=== PATIENT | male | born 1975 | race Caucasian/White ===

== ENCOUNTER 2021-06-15 14:38 | Emergency (ER) | payer BC, OTHER ==
[~2021-06-15] VITALS: Ht 188 cm; Wt 122.5 kg
--- NOTE | 2021-06-15 14:52 | NUR ---
BIBS FOR C/O WORSENING LEFT LEG SWELLING AND PAIN 10 X 2 WEEKS,H/O DVT AND PE. RESPIRATION REGULAR AND UNLABORED. WILL CONTINUE TO MONITOR THE PATIENT.
--- NOTE | 2021-06-15 15:16 | NUR ---
US TECH AT THE BEDSIDE
--- NOTE | 2021-06-15 16:04 | NUR ---
Patient discharged to home in stable condition. Written and verbal after care instructions given. Patient verbalizes understanding of instruction.
[2021-06-15 16:06] VITALS: BP 84/148
== END 2021-06-15 16:06 | disposition home or self-care (01) ==
LOC: ER 14:56
DX: M79.662 Pain in left lower leg (principal); R22.42 Localized swelling, mass and lump, left lower limb; I10 Essential (primary) hypertension; Z86.711 Personal history of pulmonary embolism; Z86.718 Personal history of other venous thrombosis and embolism; Z60.2 Problems related to living alone; Z88.2 Allergy status to sulfonamides
CPT/HCPCS: 93971-TC

== ENCOUNTER 2021-07-09 16:22 | Inpatient (IN) | payer BC ==
[~2021-07-09] VITALS: Ht 188 cm; Wt 127.0 kg
--- NOTE | 2021-07-09 16:22 | NUR ---
BIBSELF C/O BLE PAIN REDNESS AND SWELLING STARTED THIS MORNING, HAD MENISCUS SURGERY 07/05/21. PT IS A&OX4. VITAL SIGNS ARE WITHIN NORMAL LIMITS. BREATHING IS REGULAR AND UNLABORED. PT SENT TO BED 4 AND ATTCHED TO MONITOR.
--- NOTE | 2021-07-09 16:37 | NUR ---
IV ESTABLISHED L HAND #20G. LABS WERE DRAWN AND SENT. PT UNABLE TO PROVIDE URINE SAMPLE AT THIS TIME.
[2021-07-09] MEDS ORDERED: MORPHINE SULFATE INJ 2 MG/ML DISP.SYRIN IV ONE (17:00)
[2021-07-09] MEDS ORDERED: ONDANSETRON HCL/PF 4 MG/2 ML VIAL IVP ONE (17:00)
[2021-07-09] MEDS ORDERED: PIPERACILLIN /TAZOBACTAM 3.375 G in IV D5W 50 ML IV ONE (17:00)
[2021-07-09] MEDS ORDERED: VANCOMYCIN 1 GM in IV D5W 250 ML IV ONE (17:00)
[2021-07-09] MEDS ORDERED: ACETAMINOPHEN ES 500 MG TABLET PO ONE (17:00)
--- NOTE | 2021-07-09 17:03 | NUR ---
[phone] [phone] AIRCRAFT PARTS ASSEMBLER IS TONYCHRISTIANO WILL BE PAGED.
[2021-07-09] MEDS ORDERED: MORPHINE SULFATE INJ 4 MG/ML DISP.SYRIN ONE (17:19)
[2021-07-09] MEDS ORDERED: ONDANSETRON HCL/PF 4 MG/2 ML VIAL ONE (17:19)
[2021-07-09] MEDS ORDERED: ACETAMINOPHEN ES 500 MG TABLET ONE (17:19)
--- NOTE | 2021-07-09 17:28 | NUR ---
DR. KATHLEEN SPEAKING WITH DR. CHAMBERS.
[2021-07-09 17:34] LABS: BASOPHILS # (AUTO) 0.1 K/uL (0.0-0.2); BASOPHILS % (AUTO) 0.8 % (0.0-2.0); EOSINOPHILS % (AUTO) 2.2 % (0.0-6.0); HEMATOCRIT 44 % (39-51); HEMOGLOBIN 14.4 g/dL (13.5-17.5); LYMPHOCYTES # (AUTO) 1.2 K/uL (0.8-4.8); LYMPHOCYTES % (AUTO) 9.8 % (20.0-44.0); MEAN CORPUSCULAR HGB CONC 33 g/dl (31.0-36.0); MEAN CORPUSCULAR VOLUME 91 fL (80-96); MONOCYTES % (AUTO) 8.4 % (2.0-12.0); NEUTROPHILS # (AUTO) 9.6 K/uL (1.8-8.9); NEUTROPHILS % (AUTO) 78.8 % (43.0-81.0); PLATELET COUNT (AUTO) 200 K/uL (150-450); RED BLOOD CELL COUNT(AUTO) 4.76 MIL/uL (4.5-6.0); WHITE BLOOD COUNT (AUTO) 12.2 K/uL (4.3-11.0)
[2021-07-09 17:46] LABS: CALCIUM, SERUM 8.5 mg/dL (8.5-10.1); CARBON DIOXIDE 28 mmol/L (21-32); CHLORIDE 98 mmol/L (98-107); CREATININE 1.3 mg/dL (0.6-1.3); GLUCOSE 98 mg/dL (74-106); SODIUM SERUM 132 mmol/L (136-145); UREA NITROGEN, BLOOD 25 mg/dL (7-18)
[2021-07-09 17:59] LABS: ALANINE AMINOTRANSFERASE 47 U/L (12-78); ALBUMIN 3.7 g/dL (3.4-5.0); ALKALINE PHOSPHATASE 73 U/L (46-116); ASPARTATE AMINOTRANSFERASE 33 U/L (15-37); BILIRUBIN,DIRECT 0.3 mg/dL (0.0-0.2); BILIRUBIN,TOTAL 1.6 mg/dL (0.2-1.0); TOTAL PROTEIN, SERUM 7.3 g/dL (6.4-8.2)
--- NOTE | 2021-07-09 18:00 | NUR ---
LACT ACID 3.2. DR CHAMBERS NOTIFIED.
--- NOTE | 2021-07-09 18:05 | NUR ---
PT IS UNABLE TO PROVIDE URINE SAMPLE
[2021-07-09] MEDS ORDERED: IV NS 0.9% 1,000 ML IV ONE ×2 (18:30)
[2021-07-09] MEDS ORDERED: IV LR 1000 ML 1,000 ML IV ONE (18:30)
--- NOTE | 2021-07-09 18:30 | NUR ---
AN ADDITIONAL NORMAL SALINE 1,000ML GIVEN IV L HAND #[address] CHAMBERS'S ORDERS.
--- NOTE | 2021-07-09 18:45 | NUR ---
[facility] CALLED INTERNATIONAL STUDENT COUNSELOR PAGED.
--- NOTE | 2021-07-09 19:07 | NUR ---
URINE COLLECTED AND SENT
[2021-07-09] MEDS ORDERED: Z GUARD REMEDY 2 OZ OINT TP PRN (19:30)
[2021-07-09] MEDS ORDERED: ONDANSETRON HCL/PF 4 MG/2 ML VIAL IVP PRN (19:30)
[2021-07-09] MEDS ORDERED: MAG HYDROX/AL HYDROX/SIMETH 30 ML UDC PO PRN (19:30)
[2021-07-09] MEDS ORDERED: ACETAMINOPHEN 325 MG TABLET PO PRN (19:30)
[2021-07-09] MEDS ORDERED: MAGNESIUM HYDROXIDE 30 ML UDC PO PRN (19:30)
[2021-07-09 20:09] LABS: BILIRUBIN,URINE NEGATIVE (NEGATIVE); COLOR,URINE YELLOW (YELLOW); LEUKOCYTE ESTERASE ,URINE NEGATIVE (NEGATIVE); NITRITE, URINE NEGATIVE (NEGATIVE); PROTEIN,URINE NEGATIVE (NEGATIVE); UGLUCOSE NEGATIVE (NEGATIVE); UROBILINOGEN,URINE 0.2 EU/dL (0.2)
--- NOTE | 2021-07-09 22:16 | NUR ---
RECIEVED [id number]
--- NOTE | 2021-07-09 22:40 | NUR ---
REPORT GIVEN TO AIDEE
--- NOTE | 2021-07-09 22:56 | NUR ---
PT TRANSPORTED TO [facility] ON MACHINE OPERATOR HOP PICKER PER ACLS PROTOCOL WITHOUT INCIDENT
[2021-07-09 23:00] VITALS: BP_SYST 166; BP_DIAS 80; BP_DIAS 81
[2021-07-09] MEDS: MORPHINE SULFATE INJ 2 MG/ML DISP.SYRIN IV PRN (23:00)
--- NOTE | 2021-07-09 23:30 | NUR ---
Patient admitted to at 2300. A&Ox4. Only c/o is of pain (10/10 to BLE) which was reduced by PRN Morphine. Initial VS 166/80, HR 105, temp 98.3, O2 98% on RA, RR 21. Only skin issues are to BLE redness, swelling, warmth. and L knee surgical incision with intact sutures and no drainage -pictures in chart. Pupils equal and reactive to light. Lung sounds clear. Heart rhythm regular though rate is elevated. Bowel sounds active. Weakness to lower extremities from pain. Patient attached to tele monitor. Pt. oriented to staff, unit protocol, bed controls, call light. L hand #20G and R hand #20G flushed and patent. Will continue to monitor pt. closely.
[2021-07-09] MEDS ORDERED: PIPERACILLIN /TAZOBACTAM 3.375 G VIAL IV ONE (23:53)
[2021-07-09] MEDS: ZOSYN IVPB 3.375 G in IV D5W 50ml IV SCH (23:55)
[2021-07-10] VITALS: BP 141/88
[2021-07-10] MEDS: ZOLPIDEM TARTRATE 5 MG TABLET PO PRN (00:10)
[2021-07-10 02:00] VITALS: BP 141/88
[2021-07-10] MEDS: MORPHINE SULFATE INJ 2 MG/ML DISP.SYRIN IV PRN ×3 (03:20→20:12)
[2021-07-10 04:00] VITALS: BP 149/81
[2021-07-10] MEDS ORDERED: VANCOMYCIN 2 GM in IV D5W 500 ML IV ONE (05:00)
[2021-07-10] MEDS ORDERED: VANCOMYCIN 1 GM VIAL ONE ×2 (05:06→05:07)
[2021-07-10] MEDS ORDERED: PIPERACILLIN /TAZOBACTAM 3.375 G VIAL IV ONE (06:18)
[2021-07-10] MEDS: ZOSYN IVPB 3.375 G in IV D5W 50ml IV SCH (06:19)
--- NOTE | 2021-07-10 06:45 | NUR ---
Pt. tolerating IV ABX well. C/o pain x2 medicated with PRN morphine with relief. No resp or cardiac distress. VSS overnight.
--- NOTE | 2021-07-10 07:30 | NUR ---
SHADING PAINTER OPENING NOTES RECEIVED PATIENT ON BED, AWAKE AND A/O X4. ON ROOM AIR BREATHING EVENLY AND UNLABORED. NOT IN DISTRESS. WITH NO COMPLAINTS OF PAIN AT THIS TIME. WITH IV ACCESS AT LEFT HAND G20 AND RIGHT HAND G 20, SALINE LOCKED, PATENT AND INTACT. SAFETY MEASURES IN PLACE. CALL LIGHT WITHIN REACH. BED ON LOWEST LOCKED POSITION, SIDE RAILS UP X2. WILL CONTINUE TO MONITOR.
[2021-07-10 07:31] LABS: BASOPHILS # (AUTO) 0.1 K/uL (0.0-0.2); BASOPHILS % (AUTO) 0.7 % (0.0-2.0); HEMATOCRIT 39 % (39-51); HEMOGLOBIN 13.4 g/dL (13.5-17.5); MEAN CORPUSCULAR HGB CONC 34 g/dl (31.0-36.0); MEAN CORPUSCULAR VOLUME 90 fL (80-96); MONOCYTES # (AUTO) 1.1 K/uL (0.1-1.30); MONOCYTES % (AUTO) 9.7 % (2.0-12.0); NEUTROPHILS % (AUTO) 78.6 % (43.0-81.0); PLATELET COUNT (AUTO) 178 K/uL (150-450); RED BLOOD CELL COUNT(AUTO) 4.35 MIL/uL (4.5-6.0); WHITE BLOOD COUNT (AUTO) 11.5 K/uL (4.3-11.0)
[2021-07-10 07:35] LABS: CALCIUM, SERUM 8.3 mg/dL (8.5-10.1); CREATININE 1.1 mg/dL (0.6-1.3); PHOSPHORUS 1.9 mg/dL (2.5-4.9); POTASSIUM 3.7 mmol/L (3.5-5.1)
[2021-07-10 08:00] VITALS: BP 158/90
[2021-07-10] MEDS ORDERED: NEUTRA PHOS 1 POWD.PACKET PO ONE (08:30)
[2021-07-10] MEDS: PIPERACILLIN /TAZOBACTAM 3.375 G in IV D5W 100 ML IV SCH ×2 (09:17→17:35)
[2021-07-10 16:00] VITALS: BP 160/84
[2021-07-10] MEDS: VANCOMYCIN 1.5 GM in IV D5W 500 ML IV SCH (17:24)
--- NOTE | 2021-07-10 19:33 | NUR ---
MS RN CLOSING NOTES PATIENT ON BED, AWAKE AND A/O X4. ON ROOM AIR BREATHING EVENLY AND UNLABORED. NOT IN DISTRESS. WITH COMPLAINTS OF PAIN AT 7/10. COMFORT MEASURES PROVIDED. WITH IV ACCESS AT LEFT HAND G20 AND RIGHT HAND G 20, SALINE LOCKED, PATENT AND INTACT. SAFETY MEASURES IN PLACE. CALL LIGHT WITHIN REACH. BED ON LOWEST LOCKED POSITION, SIDE RAILS UP X2. WILL ENDORSE TO NEXT SHIFT FOR BUZZ.
--- NOTE | 2021-07-10 19:42 | NUR ---
MS RN OPENING NOTES RECEIVED PATIENT IN BED, AWAKE. AOx4, ABLE TO MAKE NEEDS KNOWN. ON RA AND TOLERATING WELL. NO SOB NOTED. NO S/SX OF RESPIRATORY DISTRESS NOTED. IV ACCESS IN L HAND#20 AND R HAND #20. IV IS INTACT, PATENT, AND FLUSHING WELL. SAFETY PRECAUTIONS IN PLACE: BED IN LOWEST, LOCKED POSITION, SIDERAILS UPx2, AND BRAKES ON. TABLE AND CALL LIGHT WITHIN REACH. WILL CONTINUE TO MONITOR.
[2021-07-10 20:00] VITALS: BP 144/86
--- NOTE | 2021-07-10 20:12 | NUR ---
ADMINISTERED MORPHINE PER MD ORDER. VS WNL. WILL CONTINUE TO MONITOR.
--- NOTE | 2021-07-10 21:10 | NUR ---
SPOKE TO LEIDY GHOSH FOR PATIENT'S UNRESOLVED PAIN. ORDERED TORADOL IV.
[2021-07-10] MEDS ORDERED: KETOROLAC TROMETHAMINE INJ 30 MG/ML VIAL IV ONE (21:30)
--- NOTE | 2021-07-10 22:38 | NUR ---
SPOKE TO LEIDY GHOSH FOR PATIENT'S UNRESOLVED PAIN. ORDERED DILAUDID 1 MG IV ONCE.
--- NOTE | 2021-07-10 22:49 | NUR ---
ADMINISTERED DILAUDID PER MD ORDER. VS WNL. WILL CONTINUE TO MONITOR.
[2021-07-10] MEDS ORDERED: HYDROMORPHONE 1 MG/1 ML DISP.SYRIN IV ONE (23:00)
[2021-07-11] MEDS: PIPERACILLIN /TAZOBACTAM 3.375 G in IV D5W 100 ML IV SCH ×3 (01:47→19:40)
[2021-07-11] MEDS: MORPHINE SULFATE INJ 2 MG/ML DISP.SYRIN IV PRN ×2 (02:03→06:16)
--- NOTE | 2021-07-11 02:03 | NUR ---
ADMINISTERED MORPHINE FOR PAIN PER MD ORDER. VS WNL. WILL CONTINUE TO MONITOR.
[2021-07-11] MEDS: VANCOMYCIN 1.5 GM in IV D5W 500 ML IV SCH ×2 (05:24→17:59)
--- NOTE | 2021-07-11 06:16 | NUR ---
ADMINISTERED MORPHINE FOR PAIN PER MD ORDER. VS WNL. WILL CONTINUE TO MONITOR.
[2021-07-11 06:45] LABS: BASOPHILS # (AUTO) 0.1 K/uL (0.0-0.2); BASOPHILS % (AUTO) 0.6 % (0.0-2.0); EOSINOPHILS % (AUTO) 3.5 % (0.0-6.0); HEMATOCRIT 38 % (39-51); HEMOGLOBIN 12.6 g/dL (13.5-17.5); LYMPHOCYTES # (AUTO) 1.2 K/uL (0.8-4.8); LYMPHOCYTES % (AUTO) 13.6 % (20.0-44.0); MEAN CORPUSCULAR HGB CONC 33 g/dl (31.0-36.0); MEAN CORPUSCULAR VOLUME 93 fL (80-96); MONOCYTES # (AUTO) 0.8 K/uL (0.1-1.30); MONOCYTES % (AUTO) 8.8 % (2.0-12.0); NEUTROPHILS # (AUTO) 6.4 K/uL (1.8-8.9); NEUTROPHILS % (AUTO) 73.5 % (43.0-81.0); PLATELET COUNT (AUTO) 181 K/uL (150-450); RED BLOOD CELL COUNT(AUTO) 4.09 MIL/uL (4.5-6.0); WHITE BLOOD COUNT (AUTO) 8.8 K/uL (4.3-11.0)
--- NOTE | 2021-07-11 06:55 | NUR ---
MS RN CLOSING NOTES PATIENT IN BED, AWAKE. AOx4, ABLE TO MAKE NEEDS KNOWN. ON RA AND TOLERATING WELL. NO SOB NOTED. NO S/SX OF RESPIRATORY DISTRESS NOTED. IV ACCESS IN L HAND#20 AND R HAND #20. IV IS INTACT, PATENT, AND FLUSHING WELL. ALL NEEDS MET.PT KEPT CLEAN AND DRY. TREATED PAIN THROUGHOUT SHIFT. SAFETY PRECAUTIONS IN PLACE: BED IN LOWEST, LOCKED POSITION, SIDERAILS UPx2, AND BRAKES ON. TABLE AND CALL LIGHT WITHIN REACH. WILL ENDORSE TO ONCOMING SHIFT FOR BUZZ.
[2021-07-11 07:17] LABS: CALCIUM, SERUM 8.3 mg/dL (8.5-10.1); CREATININE 1.3 mg/dL (0.6-1.3); MAGNESIUM 1.9 mg/dL (1.8-2.4); PHOSPHORUS 2.7 mg/dL (2.5-4.9); POTASSIUM 3.7 mmol/L (3.5-5.1)
--- NOTE | 2021-07-11 07:30 | NUR ---
MS RN OPENING NOTES RECEIVED PATIENT IN BED, AWAKE. AOx4, ABLE TO MAKE NEEDS KNOWN. ON RA AND TOLERATING WELL. NO SOB NOTED. NO S/SX OF RESPIRATORY DISTRESS NOTED. IV ACCESS IN L HAND#20 AND R HAND #20. IV IS INTACT, PATENT, AND FLUSHING WELL. PATIENT COMPLAINS OF PAIN. WAITING TO GET THE ASSIGNED DR TO GET ORDER FOR PAIN MEDICATION, SINCE MORPHINE ALREADY WAS ADMINISTERED AND EARLYTO GIVE ANOTHER DOSE. CONSTANTINO FROM LAB CALLED AND REPORT THE GLUCOSE LEVEL OF [phone] AT 0730. STILL WAITING FOR THE ASSIGNED DR TO CALL AND REPORT THE LAB VALUE. SAFETY PRECAUTIONS IN PLACE: BED IN LOWEST, LOCKED POSITION, SIDERAILS UPx2, AND BRAKES ON. TABLE AND CALL LIGHT WITHIN REACH. WILL CONTINUE TO MONITOR.
[2021-07-11 08:00] VITALS: BP 138/81
[2021-07-11] MEDS ORDERED: DEXTROSE 50%-WATER 50 ML DISP.SYRIN IV PRN (08:30)
[2021-07-11] MEDS ORDERED: *INSULIN REGULAR(HUMULIN R)HUM 100 UNIT/ML VIAL SQ PRN (08:30)
[2021-07-11] MEDS ORDERED: METO-358 PO (09:55)
[2021-07-11] MEDS ORDERED: DEXT20TA6 PO (09:55)
[2021-07-11] MEDS ORDERED: VENL75CA62 PO (09:55)
[2021-07-11] MEDS ORDERED: TEST200V3 IM (09:55)
[2021-07-11] MEDS ORDERED: LOSA100T31 PO (09:55)
[2021-07-11] MEDS ORDERED: ESCI10TA PO (09:55)
[2021-07-11] MEDS ORDERED: OXYC10TA49 PO (09:55)
[2021-07-11] MEDS ORDERED: RIVA10TA PO (09:55)
[2021-07-11] MEDS: HYDROMORPHONE INJ 2 MG/ML DISP.SYRIN IV PRN ×4 (09:59→22:15)
[2021-07-11] MEDS: BLOOD SUGAR DIAGNOSTIC 1 EACH STRIP VI SCH ×3 (11:53→21:23)
[2021-07-11] MEDS: INSULIN REGULAR, HUMAN 100 UNIT/ML 3 ML VIAL SQ PRN (11:56)
[2021-07-11 14:59] LABS: CALCIUM, SERUM 8.5 mg/dL (8.5-10.1); POTASSIUM 3.8 mmol/L (3.5-5.1)
[2021-07-11] MEDS: RIVAROXABAN 10 MG TABLET PO SCH (16:34)
--- NOTE | 2021-07-11 18:30 | NUR ---
PATIENT IN BED, AWAKE. AOx4, ABLE TO MAKE NEEDS KNOWN. ON RA AND TOLERATING WELL. NO SOB NOTED. NO S/SX OF RESPIRATORY DISTRESS NOTED. IV ACCESS IN R HAND #20 INTACT, PATENT, AND FLUSHING WELL. ALL DUE MEDS GIVEN ORDERED. LEFT HAND IV WAS HURTING THE PATIENT . REMOVED THE IV. FOR ANTIBIOTIC NEED ANOTHER IV LINE , 2 TRY UNSUCCESSFUL, WILL GET ORDER FROM DOCTOR FOR PICC LINE. SAFETY PRECAUTIONS IN PLACE: BED IN LOWEST, LOCKED POSITION, SIDERAILS UPx2, AND BRAKES ON. TABLE AND CALL LIGHT WITHIN REACH.WILL ENDORSE INCOMING SHIFT FOR BUZZ.
--- NOTE | 2021-07-11 19:30 | NUR ---
MS RN OPENING NOTES RECEIVED PATIENT IN BED, AWAKE. AOx4, ABLE TO MAKE NEEDS KNOWN. ON RA AND TOLERATING WELL. NO SOB NOTED. NO S/SX OF RESPIRATORY DISTRESS NOTED. IV ACCESS IN R HAND #20. IV IS INTACT, PATENT, AND FLUSHING WELL. SAFETY PRECAUTIONS IN PLACE: BED IN LOWEST, LOCKED POSITION, SIDERAILS UPx2, AND BRAKES ON. TABLE AND CALL LIGHT WITHIN REACH. WILL CONTINUE TO MONITOR.
[2021-07-11 20:00] VITALS: BP 142/80
--- NOTE | 2021-07-11 22:15 | NUR ---
ADMINISTERED DILAUDID PER MD ORDER. VS WNL. WILL CONTINUE TO MONITOR.
--- NOTE | 2021-07-12 00:53 | NUR ---
PT FELL WHILE ATTEMPTING TO GO TO RESTROOM ON OWN. NO COMPLAINTS OF NEW PAIN. PER PATIENT, HE IS NOT HURT. MD AWARE. WILL CONTINUE TO MONITOR.
[2021-07-12 01:38] VITALS: BP 131/55
[2021-07-12] MEDS: ZOLPIDEM TARTRATE 5 MG TABLET PO PRN (02:06)
[2021-07-12] MEDS: HYDROMORPHONE INJ 2 MG/ML DISP.SYRIN IV PRN ×6 (02:10→22:21)
--- NOTE | 2021-07-12 02:10 | NUR ---
ADMINISTERED DILAUDID FOR KNEE PAIN. VS WNL. WILL CONTINUE TO MONITOR.
[2021-07-12] MEDS: PIPERACILLIN /TAZOBACTAM 3.375 G in IV D5W 100 ML IV SCH ×2 (02:39→09:56)
--- NOTE | 2021-07-12 02:55 | NUR ---
NON-ADMIN ALL STOCK MEDICATIONS.
[2021-07-12] MEDS: VANCOMYCIN 1.5 GM in IV D5W 500 ML IV SCH ×2 (05:00→18:06)
[2021-07-12] MEDS: BLOOD SUGAR DIAGNOSTIC 1 EACH STRIP VI SCH ×4 (06:08→22:19)
--- NOTE | 2021-07-12 06:09 | NUR ---
ADMINISTERED DILAUDID FOR PAIN PER MD ORDER. VS WNL. WILL CONTINUE TO MONITOR.
--- NOTE | 2021-07-12 06:30 | NUR ---
MS RN CLOSING NOTES PATIENT IN BED, AWAKE. AOx4, ABLE TO MAKE NEEDS KNOWN. ON RA AND TOLERATING WELL. NO SOB NOTED. NO S/SX OF RESPIRATORY DISTRESS NOTED. IV ACCESS IN BEBETO MIDLINE #18G. IV IS INTACT, PATENT, AND FLUSHING WELL. ALL NEEDS MET. PT KEPT CLEAN AND DRY. TREATED PAIN THROUGHOUT SHIFT. SAFETY PRECAUTIONS IN PLACE: BED IN LOWEST, LOCKED POSITION, SIDERAILS UPx2, AND BRAKES ON. TABLE AND CALL LIGHT WITHIN REACH. WILL ENDORSE TO ONCOMING SHIFT FOR BUZZ.
[2021-07-12 07:01] LABS: BASOPHILS # (AUTO) 0.1 K/uL (0.0-0.2); BASOPHILS % (AUTO) 0.8 % (0.0-2.0); EOSINOPHILS % (AUTO) 1.5 % (0.0-6.0); HEMATOCRIT 40 % (39-51); HEMOGLOBIN 13.5 g/dL (13.5-17.5); LYMPHOCYTES # (AUTO) 1.2 K/uL (0.8-4.8); LYMPHOCYTES % (AUTO) 10.1 % (20.0-44.0); MEAN CORPUSCULAR HGB CONC 34 g/dl (31.0-36.0); MEAN CORPUSCULAR VOLUME 90 fL (80-96); MONOCYTES % (AUTO) 8.3 % (2.0-12.0); NEUTROPHILS # (AUTO) 9.6 K/uL (1.8-8.9); NEUTROPHILS % (AUTO) 79.3 % (43.0-81.0); PLATELET COUNT (AUTO) 260 K/uL (150-450); RED BLOOD CELL COUNT(AUTO) 4.42 MIL/uL (4.5-6.0); WHITE BLOOD COUNT (AUTO) 12.1 K/uL (4.3-11.0)
--- NOTE | 2021-07-12 07:10 | NUR ---
MS RN OPENING NOTES PATIENT SLEEPING IN BED. AOx4, ABLE TO MAKE NEEDS KNOWN. ON RA, BREATHING EVENLY AND NONLABORED NOTED.IV ACCESS IN BEBETO MIDLINE #18G. IV IS INTACT, PATENT, AND FLUSHING WELL. ALL NEEDS MET. PT KEPT CLEAN AND DRY. SAFETY MEASURES PROVIDED: LOW BED, LOCKED POSITION, SIDERAILS UPx2, BED LOCKED, AND CALL LIGHT WITHIN REACH. WILL CONTINUE TO MONITOR.
[2021-07-12 07:16] LABS: CALCIUM, SERUM 8.5 mg/dL (8.5-10.1); CREATININE 1.1 mg/dL (0.6-1.3); MAGNESIUM 2.1 mg/dL (1.8-2.4); POTASSIUM 3.8 mmol/L (3.5-5.1)
[2021-07-12 07:30] LABS: THYROID STIMULATING HORMONE 1.283 uIU/mL (0.358-3.74); URIC ACID 5.7 mg/dL (2.6-7.2)
[2021-07-12 08:00] VITALS: BP 123/75
--- NOTE | 2021-07-12 09:50 | NUR ---
WOUND CARE CONSULT: PT PRESENTS WITH REDNESS, SWELLING TO LEFT LOWER LEG AND CLOSED INCISION TO LEFT KNEE, PRESENT ON ADMISSION. RECOMMENDATIONS MADE FOR SKIN PROTECTION. DISCUSSED WITH NURSING STAFF. MD IN AGREEMENT WITH PLAN OF CARE.
--- NOTE | 2021-07-12 10:47 | NUR ---
RN NOTES PATIENT COMPLAINED OF PAIN, PAIN LEVEL 10/10, GIVEN DY DILAUDID 2MG IVPUSH ORDERED. IV SITE IS INTACT AND PATIENT, AND FLUSHED WELL. WILL KEEP MONITORING WITH PAIN MANAGEMENT.
[2021-07-12] MEDS: INSULIN REGULAR, HUMAN 100 UNIT/ML 3 ML VIAL SQ PRN (11:29)
[2021-07-12 16:00] VITALS: BP 141/100
[2021-07-12] MEDS: RIVAROXABAN 10 MG TABLET PO SCH (17:30)
--- NOTE | 2021-07-12 18:20 | NUR ---
MS RN CLOSING NOTES PATIENT AWAKING IN BED. AOx4, ABLE TO MAKE NEEDS KNOWN. ON RA, BREATHING EVENLY AND NONLABORED NOTED. NOT RESPIRATORY DISTRESS NOTED AT THIS TIME. IV ACCESS IN BEBETO MIDLINE #18G, ANTIBIOTIC MEDICATION GIVEN ORDERED. DILAUDID 2MG IVPUSH FOR PAIN MANAGEMENT. IV IS INTACT, PATENT, AND FLUSHING WELL. ALL NEEDS MET. SAFETY MEASURES PROVIDED: LOW BED, LOCKED POSITION, SIDE RAILS UPx2, BED LOCKED, AND CALL LIGHT WITHIN REACH. WILL ENDORSE TO PLAN OF CARE TO OUTREACH ASSOCIATE NURSE.
--- NOTE | 2021-07-12 19:30 | NUR ---
MS RN NOTE RECEIVED PATIENT IN BED. A/OX4. NO S/S OF APPARENT DISTRESS. PAIN TOLERABLE AT THE MOMENT. PATIENT ABLE TO MAKE NEEDS KNOWN. IV VANCO STILL RUNNING AT THIS TIME. CRUTCHES AT BEDSIDE. SAFETY IN PLACE. NEEDS ATTENDED AT THE MOMENT. WILL CONTINUE WITH PLAN OF CARE FOR PATIENT.
[2021-07-12 20:00] VITALS: BP 164/103
[2021-07-12] MEDS: ZOSYN IVPB 3.375 G in IV D5W 50ml IV SCH (20:09)
--- NOTE | 2021-07-12 22:30 | NUR ---
MS RN NOTE PATIENT IN SEVERE PAIN. GIVEN DILAUDID 20 MINUTES EARLIER. WILL REASSESS.
[2021-07-13] MEDS: ZOSYN IVPB 3.375 G in IV D5W 50ml IV SCH ×4 (02:07→20:11)
[2021-07-13] MEDS: HYDROMORPHONE INJ 2 MG/ML DISP.SYRIN IV PRN ×6 (02:10→22:03)
[2021-07-13] MEDS: ZOLPIDEM TARTRATE 5 MG TABLET PO PRN (02:25)
[2021-07-13] MEDS: VANCOMYCIN 1.5 GM in IV D5W 500 ML IV SCH ×2 (06:31→18:23)
[2021-07-13 06:40] LABS: BASOPHILS # (AUTO) 0.1 K/uL (0.0-0.2); BASOPHILS % (AUTO) 1.2 % (0.0-2.0); EOSINOPHILS % (AUTO) 5.1 % (0.0-6.0); HEMATOCRIT 40 % (39-51); HEMOGLOBIN 13.5 g/dL (13.5-17.5); LYMPHOCYTES # (AUTO) 1.2 K/uL (0.8-4.8); LYMPHOCYTES % (AUTO) 11.2 % (20.0-44.0); MEAN CORPUSCULAR HGB CONC 34 g/dl (31.0-36.0); MEAN CORPUSCULAR VOLUME 90 fL (80-96); MONOCYTES # (AUTO) 1.1 K/uL (0.1-1.30); MONOCYTES % (AUTO) 10.6 % (2.0-12.0); NEUTROPHILS # (AUTO) 7.5 K/uL (1.8-8.9); NEUTROPHILS % (AUTO) 71.9 % (43.0-81.0); PLATELET COUNT (AUTO) 280 K/uL (150-450); RED BLOOD CELL COUNT(AUTO) 4.41 MIL/uL (4.5-6.0); WHITE BLOOD COUNT (AUTO) 10.5 K/uL (4.3-11.0)
[2021-07-13 06:56] LABS: CALCIUM, SERUM 9.4 mg/dL (8.5-10.1); CREATININE 1.3 mg/dL (0.6-1.3); POTASSIUM 3.9 mmol/L (3.5-5.1)
[2021-07-13] MEDS: BLOOD SUGAR DIAGNOSTIC 1 EACH STRIP VI SCH ×4 (07:30→22:27)
--- NOTE | 2021-07-13 07:45 | NUR ---
RN OPENING NOTE RECEIVED PATIENT IN BED. A/O X4. ON ROOM AIR, TOLERATING WELL. NO SOB NOTED. IN NO APPARENT DISTRESS. IV ACCESS ON BEBETO MIDLINE #18G, INTACT AND PATENT. SAFETY MEASURES MAINTAINED. BED IN LOWEST POSITION, BRAKES LOCKED. SIDE RAILS UP X2. CALL LIGHT WITHIN REACH. WILL CONTINUE PLAN OF CARE.
[2021-07-13 08:00] VITALS: BP 157/108
--- NOTE | 2021-07-13 08:28 | NUR ---
report given to Chuy for continuity of care.
[2021-07-13 16:00] VITALS: BP 161/106
[2021-07-13] MEDS: RIVAROXABAN 10 MG TABLET PO SCH (16:29)
[2021-07-13] MEDS: oxyCODONE IR immediate release 5 MG PO PRN (16:55)
--- NOTE | 2021-07-13 18:58 | NUR ---
RN CLOSING NOTE PATIENT RESTING IN BED. A/O X4. ON ROOM AIR, TOLERATING WELL. NO SOB NOTED. IN NO APPARENT DISTRESS. IV ACCESS ON BEBETO MIDLINE #18G, VANCOMYCIN IV CURRENTLY RUNNING AT 250 ML/HR. INTACT AND PATENT. DUE MEDS GIVEN ORDERED. ALL NEEDS HAVE BEEN MET AND ATTENDED. SAFETY MEASURES MAINTAINED. BED IN LOWEST POSITION, BRAKES LOCKED. SIDE RAILS UP X2. KEPT CALL LIGHT WITHIN REACH. WILL ENDORSE CONTINUITY OF CARE TO INCOMING SHIFT.
--- NOTE | 2021-07-13 19:43 | NUR ---
MS RN NOTE RECEIVED PATIENT IN BED. A/OX4. NO S/S OF APPARENT DISTRESS. DENIES PAIN AT THIS TIME. PATIENT ABLE TO MAKE NEEDS KNOWN. IV VANCO STILL RUNNING AT THIS TIME @250CC/HR. CRUTCHES AT BEDSIDE. SAFETY IN PLACE. NEEDS ATTENDED AT THE MOMENT. WILL CONTINUE WITH PLAN OF CARE FOR PATIENT.
[2021-07-13 20:36] VITALS: BP 161/95
[2021-07-14] MEDS: oxyCODONE IR immediate release 5 MG PO PRN ×5 (00:54→17:25)
[2021-07-14] MEDS: ZOSYN IVPB 3.375 G in IV D5W 50ml IV SCH ×3 (02:08→13:37)
[2021-07-14] MEDS: HYDROMORPHONE INJ 2 MG/ML DISP.SYRIN IV PRN ×3 (02:28→14:29)
--- NOTE | 2021-07-14 02:28 | NUR ---
MS RN NOTE PATIENT C/O 8/10 PAIN IN HIS L. LEG/CALF. DILAUDID 2MG GIVEN FOR BREAKTHROUGH PAIN.
[2021-07-14] MEDS: ZOLPIDEM TARTRATE 5 MG TABLET PO PRN (03:08)
--- NOTE | 2021-07-14 04:54 | NUR ---
MS RN NOTE I WAS PULLING OUT MEDICATION IN [facility] WHEN FALLON ROUSSEAU KNOCKED AND TELLING ME MY PATIENT 315-2 IS NOT OKAY AND MAYBE HAVING A SEIZURE. CHECKED ON PATIENT AND HE WAS ON BED, HE WAS TURNING BLUE BUT PATIENT EYES WERE OPEN.
--- NOTE | 2021-07-14 04:55 | NUR ---
RAPID RESPONSE TEAM WITH ROBINA KHAN VICTORIA, RN AND FALLON FIGUEROA WERE IN THE ROOM. AT THIS TIME.
--- NOTE | 2021-07-14 04:55 | NUR ---
MS RN NOTE CALLED RAPID RESPONSE AT THIS TIME. PATIENT V/S WERE TAKEN. BLOOD SUGAR WERE TAKEN. NO RESUSCITATION HAPPENED SINCE PATIENT HAS PULSE.
--- NOTE | 2021-07-14 04:59 | NUR ---
MS RN NOTE PATIENT WOKE UP AT THIS TIME. HE WAS TALKING AND STUTTERING, AGITATED, AND 95% ON ROOM AIR TRYING TO EXPLAIN WHAT HAPPENED. V/S WAS STILL ABNORMAL SINCE PATIENT WAS STILL AGITATED.
[2021-07-14] MEDS ORDERED: LORAZEPAM INJ 2 MG/ML VIAL IV STA (05:01)
--- NOTE | 2021-07-14 05:05 | NUR ---
RAPID RESPONSE ENDED AT THIS TIME. WAITING FOR PATIENT TO CALM DOWN TO RECHECKED V/S AGAIN. BLOOD SUGAR WAS 139. INTERVIEWED PATIENT AFTER, PER PATIENT HE HAD EPISODES LIKE THAT BEFORE IN HIS SLEEP WERE HE JUST HAVE NIGHTMARES, HALLUCINATE, AND PER PATIENT HE THINKS IT IS BECAUSE THAT HIS BLOOD SUGAR WENT DOWN BEFORE HE WENT TO BED AND HE ATE M&M'S IN BED AND FELL ASLEEP AND THAT IS WHY HE HALLUCINATED BUT WHEN WE CHECKED HIS BS IT WENT UP ALREADY TO 139 BECAUSE OF THE M&M'S OR... PATIENT STATED THAT MAYBE IT IS BECAUSE FROM THE FOOD THAT HE GET'S DELIVERED, BECAUSE PATIENT DOES GET UBER DELIVERY AT NIGHT BECAUSE PER PATIENT HE DOES NOT EAT THE HOSPITAL FOOD AT ALL AND ORDERS UBER EVERY NIGHT. WILL CONT. TO MONITOR PATIENT.
--- NOTE | 2021-07-14 05:05 | NUR ---
LEIDY IZQUIERDO, MADE AWARE OF THE PTS SEIZURE, DOCTOR ORDERED ATIVAN 1MG IV X1 NOW. ORDER CARRIED OUT. WAITING FOR THE PHARMACY TO VERIFY MEDICATION.
--- NOTE | 2021-07-14 06:00 | NUR ---
MS RN NOTE STAYED WITH PATIENT TILL THIS TIME. PATIENT MORE ALERT NOW, STILL SHAKY BUT ORIENTED. V/S RECHECKED: 149/86, HR-118, 99% SATURATION. T-99.0. PATIENT STABLE AT THIS MOMENT. WILL CONTINUE TO MONITOR.
[2021-07-14] MEDS: VANCOMYCIN 1.5 GM in IV D5W 500 ML IV SCH ×2 (06:41→18:00)
[2021-07-14 06:52] LABS: BASOPHILS # (AUTO) 0.1 K/uL (0.0-0.2); BASOPHILS % (AUTO) 1.2 % (0.0-2.0); EOSINOPHILS % (AUTO) 4.5 % (0.0-6.0); HEMATOCRIT 39 % (39-51); HEMOGLOBIN 13.1 g/dL (13.5-17.5); LYMPHOCYTES % (AUTO) 8.1 % (20.0-44.0); MEAN CORPUSCULAR HGB CONC 34 g/dl (31.0-36.0); MEAN CORPUSCULAR VOLUME 91 fL (80-96); MONOCYTES # (AUTO) 1.1 K/uL (0.1-1.30); MONOCYTES % (AUTO) 9.3 % (2.0-12.0); NEUTROPHILS # (AUTO) 9.3 K/uL (1.8-8.9); NEUTROPHILS % (AUTO) 76.9 % (43.0-81.0); PLATELET COUNT (AUTO) 294 K/uL (150-450); RED BLOOD CELL COUNT(AUTO) 4.29 MIL/uL (4.5-6.0); WHITE BLOOD COUNT (AUTO) 12.1 K/uL (4.3-11.0)
[2021-07-14 07:12] LABS: CALCIUM, SERUM 8.6 mg/dL (8.5-10.1); CREATININE 1.8 mg/dL (0.6-1.3); POTASSIUM 3.7 mmol/L (3.5-5.1)
[2021-07-14] MEDS: BLOOD SUGAR DIAGNOSTIC 1 EACH STRIP VI SCH ×3 (07:51→17:23)
[2021-07-14 07:53] VITALS: BP 149/86
--- NOTE | 2021-07-14 08:03 | NUR ---
INTERVENTION DONE FOR RAPID RESPONSE. REPORT GIVEN TO KENDRA FOR CONTINUITY OF CARE.
--- NOTE | 2021-07-14 08:05 | NUR ---
RN NOTES DR. HORN AT BEDSIDE TO SEE THE PATIENT AND INFORMED ABOUT PLAN OF CARE.
--- NOTE | 2021-07-14 08:06 | NUR ---
RN NOTES RECEIVED PATIENT RESTING IN BED, AWAKE AND VERBALLY RESPONSIVE. A/O X4, ABLE TO MAKE NEEDS KNOWN. IV LINE INTACT AND PATENT. REQUESTED FOR PAIN MEDS FOR LE PAIN, PAIN ASSESSED INDICATED. PATIENT IS AMBULATORY W/ STEADY GAIT. SAFETY MEASURES IN PLACE. WILL CONTINUE TO MONITOR.
[2021-07-14 08:19] VITALS: BP 100/70
--- NOTE | 2021-07-14 11:11 | NUR ---
RN NOTES PATIENT SEEN BY DR. GANDARA FOR PAIN MGT.
[2021-07-14] MEDS: INSULIN REGULAR, HUMAN 100 UNIT/ML 3 ML VIAL SQ PRN (11:12)
[2021-07-14 16:32] VITALS: BP 164/87
[2021-07-14] MEDS: RIVAROXABAN 10 MG TABLET PO SCH (17:00)
[2021-07-14] MEDS ORDERED: OXYC30TA2 PO (17:18)
[2021-07-14] MEDS ORDERED: CLIN300C12 PO (17:18)
--- NOTE | 2021-07-14 17:20 | NUR ---
RN NOTES PRESCRIPTION AND DISCHARGE PAPERS GIVEN TO PATIENT AND ACCEPTED.
--- NOTE | 2021-07-14 18:24 | NUR ---
RN NOTES PATIENT SEEN BY DR. HORN TODAY W/ ORDER FOR DISCHARGE TO HOME. DISCHARGE INSTRUCTIONS AND EDUCATION PROVIDED TO PATIENT. DISCHARGE FORM AND BELONGINGS LIST FORM SIGNED BY PATIENT AND ALL BELONGINGS ACCOUNTED FOR (EXCEPT FOR SILVER COIN AND EAR PIECE FROM PATIENT'S AIR PODS). PRESCRIPTION ALREADY WITH PATIENT. NAME ARMBAND AND MIDLINE REMOVED. PATIENT REFUSED FOR PHOTO OF SKIN ISSUE TO BE TAKEN; DRESSING DRY AND INTACT. PATIENT IS AMBULATORY AND USES CRUTCHES FOR ASSISTIVE DEVICE.
--- NOTE | 2021-07-14 18:54 | NUR ---
RN NOTES PATIENT OKAY TO AMBULATE BY HIMSELF AND DID NOT REQUEST STAFF ASSISTANCE. CHARGE NURSE AND MD AWARE OF DISCHARGE.
== END 2021-07-14 18:45 | disposition home or self-care (01) | DRG 863 ==
LOC: ER 16:44 → TRANSITION 21:51 → TELE 22:25 → MED 07-10 11:39
PROVIDERS: ADMIT Internal Medicine; ATTEND Family Medicine
PROC: 05H533Z Insertion of Infusion Device into Right Subclavian Vein, Percutaneous Approach (ICD-10-PCS; principal; 2021-07-11)
PROC: B546ZZA Ultrasonography of Right Subclavian Vein, Guidance (ICD-10-PCS; 2021-07-11)
DX: T81.40XA Infection following a procedure, unspecified, initial encounter (principal); L03.116 Cellulitis of left lower limb; D68.59 Other primary thrombophilia; E87.2 Acidosis; E22.2 Syndrome of inappropriate secretion of antidiuretic hormone; E86.9 Volume depletion, unspecified; I10 Essential (primary) hypertension; I87.2 Venous insufficiency (chronic) (peripheral); E66.01 Morbid (severe) obesity due to excess calories; F17.210 Nicotine dependence, cigarettes, uncomplicated; G89.4 Chronic pain syndrome; Z86.711 Personal history of pulmonary embolism; Z79.891 Long term (current) use of opiate analgesic; G47.33 Obstructive sleep apnea (adult) (pediatric); Z86.718 Personal history of other venous thrombosis and embolism; Z79.01 Long term (current) use of anticoagulants; Z20.822 Contact with and (suspected) exposure to COVID-19; M25.562 Pain in left knee; E86.1 Hypovolemia; R73.9 Hyperglycemia, unspecified; Y83.8 Other surgical procedures as the cause of abnormal reaction of the patient, or of later complication, without mention of misadventure at the time of the procedure; Y92.89 Other specified places as the place of occurrence of the external cause; Z68.35 Body mass index [BMI] 35.0-35.9, adult
CPT/HCPCS: 36415; 71045-TC; 80048-TC; 80076-TC; 80202-TC; 82962-TC; 83605-TC; 83735-TC; 83880; 84100-TC; 84443-TC; 84484-TC; 84550-TC; 85025-TC; 85730-TC; 86850-TC; 87040-TC; 87081-TC; 87086-TC; 93970-TC; 97116-TC; 97530-TC; A6253; C9803; G0378; J1170; J1815; J1885; J2060; J2270; J2405; J2543; J3370; J3490; J7030; J7040; J7050; J7060; J7120